=== PATIENT | female | born 1950 | race Caucasian/White ===

== ENCOUNTER 2016-07-09 11:06 | Emergency (ER) | payer MEDICARE, OTHER | END 2016-07-09 12:57 | disposition home or self-care (01) | LOC: ER 11:06 | DX: R11.2 Nausea with vomiting, unspecified (principal); R19.7 Diarrhea, unspecified; Z88.5 Allergy status to narcotic agent; Z88.2 Allergy status to sulfonamides; Z88.8 Allergy status to other drugs, medicaments and biological substances; Z91.041 Radiographic dye allergy status ==

== ENCOUNTER 2016-09-07 09:20 | Emergency (ER) | payer MEDICARE, OTHER | END 2016-09-07 11:37 | disposition home or self-care (01) | LOC: ER 09:20 | DX: S22.048A Other fracture of fourth thoracic vertebra, initial encounter for closed fracture (principal); S22.058A Other fracture of T5-T6 vertebra, initial encounter for closed fracture; S22.068A Other fracture of T7-T8 thoracic vertebra, initial encounter for closed fracture; S22.078A Other fracture of T9-T10 vertebra, initial encounter for closed fracture; Z87.442 Personal history of urinary calculi; Z98.51 Tubal ligation status; Z88.2 Allergy status to sulfonamides; Z88.5 Allergy status to narcotic agent; Z91.041 Radiographic dye allergy status; Z88.8 Allergy status to other drugs, medicaments and biological substances; X58.XXXA Exposure to other specified factors, initial encounter ==

== ENCOUNTER 2016-10-03 06:22 | Emergency (ER) | payer MEDICARE, OTHER | END 2016-10-03 08:14 | disposition home or self-care (01) | LOC: ER 06:22 | DX: R53.83 Other fatigue (principal); R09.81 Nasal congestion; R21 Rash and other nonspecific skin eruption; M81.0 Age-related osteoporosis without current pathological fracture; Z87.442 Personal history of urinary calculi; Z98.51 Tubal ligation status; Z98.890 Other specified postprocedural states; Z79.899 Other long term (current) drug therapy; Z88.8 Allergy status to other drugs, medicaments and biological substances; Z88.5 Allergy status to narcotic agent; Z88.2 Allergy status to sulfonamides; Z91.041 Radiographic dye allergy status | CPT/HCPCS: 36415 ==